=== PATIENT | female | born 1980 | race Caucasian/White ===

== ENCOUNTER 2024-03-03 20:20 | Inpatient (IN) | payer OTHER ==
[2024-03-03 21:15] VITALS: BMI 24.6
[2024-03-03] MEDS ORDERED: NALOXONE HCL 0.4 MG/ML VIAL IM PRN (21:58)
[2024-03-03] MEDS ORDERED: MAGNESIUM HYDROX 2400MG/30ML ORAL SUSPENSION 30 ML CUP PO PRN (21:58)
[2024-03-03] MEDS ORDERED: LOPERAMIDE HCL 2 MG CAPSULE PO PRN (21:58)
[2024-03-03] MEDS ORDERED: BENZONATATE 200 MG CAPSULE PO PRN (21:58)
[2024-03-03] MEDS ORDERED: POLYETHYLENE GLYCOL (HEALTHYLAX) 3350 17 GM PACKET PO PRN (21:58)
[2024-03-03] MEDS ORDERED: NALOXONE (NARCAN) HCL 4 MG/0.1 ML SPRAY NS PRN (21:58)
[2024-03-03] MEDS ORDERED: IBUPROFEN 400 MG TABLET (FP) PO PRN (21:58)
[2024-03-03] MEDS ORDERED: ONDANSETRON *ODT* 4 MG TABLET SL PRN (21:58)
[2024-03-03] MEDS ORDERED: guaiFENesin 600 MG TABLET.ER (FP) PO PRN (21:58)
[2024-03-03] MEDS ORDERED: BENZOCAINE/MENTHOL (CHLORASEPTIC ) LOZENGE MM PRN (21:58)
[2024-03-03] MEDS: THIAMINE 100 MG TABLET PO SCH (23:17)
[2024-03-03] MEDS: MELATONIN 5 MG TABLETS PO SCH (23:17)
[2024-03-03] MEDS: methaDONE HCL 10 MG TABLET (FOR DETOX USE ONLY) PO ONE ×2 (23:17→23:26)
[2024-03-03] MEDS: diazePAM 5 MG TABLET PO SCH (23:18)
[2024-03-04] MEDS: diazePAM 5 MG TABLET PO PRN (01:35)
[2024-03-04] MEDS: IBUPROFEN 600 MG TABLET (FP) PO PRN (05:39)
[2024-03-04] MEDS: NICOTINE POLACRILEX 4 MG GUM BUC PRN (06:47)
[2024-03-04] MEDS: NICOTINE 21 MG/24 HOURS TOPICAL PATCH TD SCH (10:17)
[2024-03-04] MEDS: PRENATAL VITAMINS W/ FOLIC ACID TABLET (FP) PO SCH (10:17)
[2024-03-04] MEDS: cloNIDine HCL 0.1 MG TABLET PO PRN (11:59)
[2024-03-04 12:51] LABS: HEMATOCRIT 30.9 % (32.4-45.2); HEMOGLOBIN 9.9 GM/dL (10.7-15.3); MCH 24.1 pg (25.7-33.7); MEAN CELL VOLUME 75.2 fl (80-96); PLATELET COUNT 285 10^3/uL (134-434); RBC 4.11 M/mm3 (3.60-5.2); RDW 17.5 % (11.6-15.6); WHITE BLOOD COUNT 4.1 K/mm3 (4.0-10.0)
[2024-03-04 12:58] LABS: CHLORIDE 109 mmol/L (98-107); POTASSIUM 3.9 mmol/L (3.5-5.1); SODIUM 141 mmol/L (136-145)
[2024-03-04 13:04] LABS: ALBUMIN 3.5 g/dl (3.4-5.0); ANION GAP 5 mmol/L (4-13); BLOOD UREA NITROGEN 8.4 mg/dL (7-18); CALCIUM 8.7 mg/dL (8.5-10.1); CO2 26 mmol/L (21-32); GLUCOSE,RANDOM 97 mg/dL (74-106)
[2024-03-04 13:07] LABS: CREATININE 0.6 mg/dL (0.55-1.3); SGOT/AST 12 U/L (15-37); SGPT/ALT 16 U/L (13-61)
[2024-03-04 13:08] LABS: BILIRUBIN,TOTAL 0.3 mg/dL (0.2-1); TOT PROT 6.8 g/dl (6.4-8.2)
[2024-03-04 13:09] LABS: ALK PHOS 48 U/L (45-117)
[2024-03-04] MEDS: hydrOXYzine PAMOATE 25 MG CAPSULE (FP) PO PRN (15:37)
[2024-03-04] MEDS: ACETAMINOPHEN 325 MG TABLET (FP) PO PRN (21:01)
[2024-03-04] MEDS: QUEtiapine FUMARATE 50 MG TABLET PO SCH (22:05)
[2024-03-05] MEDS: diazePAM 5 MG TABLET PO SCH (05:38)
[2024-03-05] MEDS: methaDONE HCL 10 MG TABLET (FOR DETOX USE ONLY) PO ONE (09:24)
[2024-03-05] MEDS: methaDONE HCL 10 MG TABLET PO ONE (13:35)
[2024-03-05] MEDS: cloNIDine HCL 0.1 MG TABLET PO SCH (13:37)
[2024-03-05] MEDS ORDERED: methaDONE HCL 10 MG TABLET PO PRN (15:10)
[2024-03-05] MEDS: BISMUTH SUBSALICYLATE 524 MG/30 ML PO PRN (20:13)
[2024-03-06] MEDS: diazePAM 5 MG TABLET PO SCH (05:32)
[2024-03-06] MEDS: methaDONE HCL 40 MG DISPERSABLE TABLET PO ONE (09:14)
[2024-03-06] MEDS ORDERED: methaDONE 40 MG, methaDONE 10 MG PO ONE (10:00)
[2024-03-06] MEDS: DICYCLOMINE HCL 10 MG CAPSULE PO PRN (19:06)
[2024-03-07] MEDS: cloNIDine HCL 0.1 MG TABLET PO PRN (04:35)
[2024-03-07] MEDS: diazePAM 5 MG TABLET PO ONE (05:16)
[2024-03-07] MEDS: methaDONE 40 MG, methaDONE 10 MG PO ONE (09:09)
[2024-03-07] MEDS ORDERED: methaDONE 40 MG, methaDONE 20 MG PO ONE (10:00)
[2024-03-07] MEDS ORDERED: methaDONE HCL 10 MG TABLET (FOR DETOX USE ONLY) PO ONE (10:00)
[2024-03-07] MEDS ORDERED: methaDONE HCL 40 MG DISPERSABLE TABLET PO ONE (10:00)
[2024-03-07] MEDS: diazePAM 5 MG TABLET PO PRN (12:51)
[2024-03-07] MEDS: MAG HYDROX/AL HYDROX/SIMETH 30 ML UNIT-DOSE CUP PO PRN (18:50)
[2024-03-08] MEDS: methaDONE 40 MG, methaDONE 20 MG PO ONE (09:08)
[2024-03-08] MEDS ORDERED: methaDONE HCL 40 MG DISPERSABLE TABLET PO ONE (10:00)
[2024-03-08] MEDS ORDERED: methaDONE 40 MG, methaDONE 30 MG PO ONE (10:00)
[2024-03-08] MEDS: METHOCARBAMOL 500 MG TABLET PO PRN (18:39)
[2024-03-09 08:56] VITALS: BP 144/87; PULSE 88; RESP 20; TEMP 98
[2024-03-09] MEDS: methaDONE 40 MG, methaDONE 20 MG PO ONE (09:23)
[2024-03-09] MEDS ORDERED: methaDONE HCL 40 MG DISPERSABLE TABLET PO ONE ×2 (10:00)
[2024-03-10] MEDS ORDERED: methaDONE 80 MG, methaDONE 10 MG PO ONE (10:00)
[2024-03-10] MEDS ORDERED: methaDONE 40 MG, methaDONE 30 MG PO ONE (10:00)
[2024-03-10] MEDS ORDERED: methaDONE HCL 40 MG DISPERSABLE TABLET PO ONE (10:00)
== END 2024-03-09 10:37 | disposition home or self-care (01) | DRG 773 ==
LOC: YASAS 20:20 → Y3N 22:35
PROVIDERS: ADMIT Allergy & Immunology; ATTEND Surgery
PROC: HZ2ZZZZ Detoxification Services for Substance Abuse Treatment (ICD-10-PCS; principal; 2024-03-03)
DX: F11.23 Opioid dependence with withdrawal (principal); F13.230 Sedative, hypnotic or anxiolytic dependence with withdrawal, uncomplicated; F14.20 Cocaine dependence, uncomplicated; F17.210 Nicotine dependence, cigarettes, uncomplicated; F19.24 Other psychoactive substance dependence with psychoactive substance-induced mood disorder; E06.9 Thyroiditis, unspecified; G47.00 Insomnia, unspecified; Z86.59 Personal history of other mental and behavioral disorders
CPT/HCPCS: 36415; 80053; 80305; 80307; 81025; 84436; 84439; 84443; 84480; 84481; 85027; 86780; 93005; 93010